=== PATIENT | male | born 1940 ===

== ENCOUNTER → 2017-10-19 | Outpatient (CLI) | payer MEDICARE, OTHER ==
[~2017-10-19] MED LIST: CYAN100 PO; FISH1000 PO; FOLI1 PO; TOCO400 PO; Vitamin C100 M1 PO
== END ==
LOC: LAB SHORT 11:22 → PLD 11:22
DX: D48.5 Neoplasm of uncertain behavior of skin (principal)
CPT/HCPCS: 88305